=== PATIENT | female | born 1955 | race Caucasian/White ===

== ENCOUNTER 2018-05-28 09:37 | Day surgery (SDC) | payer MEDICAID ==
[~2018-05-28] VITALS: Ht 157.5 cm; Wt 63.5 kg
[2018-05-28] MEDS ORDERED: IOPAMIDOL 50 ML VIAL IV ONE (09:38)
[2018-05-28] MEDS ORDERED: LIDOCAINE 2%, 20 ML MDV INJ ONE (09:38)
[2018-05-28] MEDS ORDERED: methylPREDNISolone ACETATE 40 MG/ML IM ONE (09:38)
[2018-05-28] MEDS ORDERED: BUPIVACAINE /PF 0.25% 30 ML VIAL INJ ONE (09:38)
[2018-05-28] MEDS ORDERED: MIDAZOLAM HCL 5 MG/5 ML VIAL ONE (12:38)
[2018-05-28] MEDS ORDERED: DIPHENHYDRAMINE INJ 50 MG/ML VIAL ONE (12:38)
[2018-05-28 17:10] VITALS: BP_SYST 115
== END 2018-05-28 15:15 | disposition home or self-care (01) ==
LOC: SDS 09:37 → SMU 10:06 → SDS 15:15
PROVIDERS: ATTEND Internal Medicine
DX: M51.16 Intervertebral disc disorders with radiculopathy, lumbar region (principal); G89.29 Other chronic pain; Z88.8 Allergy status to other drugs, medicaments and biological substances; M54.5 Low back pain; M96.1 Postlaminectomy syndrome, not elsewhere classified; M79.10 Myalgia, unspecified site; I10 Essential (primary) hypertension
CPT/HCPCS: 62323; J1030; J1200; J2001; J2250; J3490; Q9967; 76000